=== PATIENT | female | born 2000 | race Two or more races ===

== ENCOUNTER 2018-02-26 02:09 | Observation (INO) | payer SELFPAY ==
[2018-02-26 03:10] LABS: Alcohol, Urine < 3.0 mg/dL (0-5); Amphetamine Screen, Urine NEGATIVE (NEGATIVE); Barbiturate Scree,Urine NEGATIVE (NEGATIVE); Benzodiazephine Screen, Urine NEGATIVE (NEGATIVE); Cannabinoid Screen, Urine NEGATIVE (NEGATIVE); Cocaine Screen, Urine NEGATIVE (NEGATIVE); Opiate Scree,Urine NEGATIVE (NEGATIVE); Phencyclidine Screen, Urine NEGATIVE (NEGATIVE)
[2018-02-26 03:19] LABS: Urine Bacteria FEW /hpf (None Seen); Urine Blood 2+ /uL (Negative); Urine Mucus FEW (None Seen); Urine Specific Gravity 1.029 (1.001-1.035); Urine WBC 25 /hpf (0 - 5)
== END 2018-02-26 03:41 | disposition home or self-care (01) | DRG 781 ==
LOC: LDRP 02:09
PROVIDERS: ADMIT Specialist; ATTEND Specialist
DX: O26.852 Spotting complicating pregnancy, second trimester (principal); O26.892 Other specified pregnancy related conditions, second trimester; R10.9 Unspecified abdominal pain; Z3A.20 20 weeks gestation of pregnancy
CPT/HCPCS: 59025; 76805; 80307; 81001; 81002; 86850; 86900; 86901; G0378

== ENCOUNTER 2018-05-29 08:45 | Emergency (ER) | payer MEDICAID ==
[~2018-05-29] VITALS: Ht 154.9 cm; Wt 61.7 kg
[2018-05-29 08:52] VITALS: BP 105/66
[2018-05-29] MEDS ORDERED: PREN-153 OR (13:11)
[2018-05-29] MEDS ORDERED: FERR27TA2 PO (13:11)
[2018-05-30] MEDS ORDERED: NIF10C GT (19:19)
== END 2018-05-29 08:55 | disposition home or self-care (01) ==
LOC: ER 08:45 → EDBD 08:45 → ER 08:55
DX: O26.893 Other specified pregnancy related conditions, third trimester (principal); R10.9 Unspecified abdominal pain; R07.89 Other chest pain; Z3A.32 32 weeks gestation of pregnancy

== ENCOUNTER 2018-05-29 08:55 | Observation (INO) | payer MEDICAID ==
[2018-05-29] MEDS ORDERED: LACTATED RINGER'S 1,000 ML IV ONE (09:45)
[2018-05-29] MEDS ORDERED: BETAMETHASONE ACET (6MG/ML) 5ML VIAL IM SCH (10:00)
[2018-05-29] MEDS: TERBUTALINE SULFATE 1 MG/ML 1ML VIAL SC SCH ×3 (10:03→10:52)
[2018-05-29 10:52] LABS: Urine Bacteria MOD /hpf (None Seen); Urine Blood Negative /uL (Negative); Urine Specific Gravity 1.004 (1.001-1.035); Urine Sperm PRESENT /hpf (None Seen); Urine WBC 29 /hpf (0 - 5)
[2018-05-29 10:55] LABS: Alcohol, Urine < 3.0 mg/dL (0-5); Amphetamine Screen, Urine NEGATIVE (NEGATIVE); Barbiturate Scree,Urine NEGATIVE (NEGATIVE); Benzodiazephine Screen, Urine NEGATIVE (NEGATIVE); Cannabinoid Screen, Urine NEGATIVE (NEGATIVE); Cocaine Screen, Urine NEGATIVE (NEGATIVE); Opiate Scree,Urine NEGATIVE (NEGATIVE); Phencyclidine Screen, Urine NEGATIVE (NEGATIVE)
[2018-05-29] MEDS ORDERED: FERR27TA2 PO (13:11)
[2018-05-29] MEDS ORDERED: PREN-153 OR (13:11)
[2018-05-30] MEDS ORDERED: NIF10C GT (19:19)
== END 2018-05-29 12:00 | disposition home or self-care (01) | DRG 563 ==
LOC: LDRP 08:55
PROVIDERS: ADMIT Obstetrics & Gynecology; ATTEND Obstetrics & Gynecology
DX: O60.03 Preterm labor without delivery, third trimester (principal); O26.853 Spotting complicating pregnancy, third trimester; Z3A.32 32 weeks gestation of pregnancy
CPT/HCPCS: 59025; 76815; 80307; 81001; 81002; 96360; 96372; G0378; J0702; J3105

== ENCOUNTER 2018-05-30 18:32 | Observation (INO) | payer MEDICAID ==
[~2018-05-30 18:32] MED LIST: BETAMETHASONE ACET (6MG/ML) 5ML VIAL IM ONE; FERR27TA2 PO; PREN-153 OR
[2018-05-30] MEDS ORDERED: NIF10C GT (19:19)
== END 2018-05-30 19:56 | disposition home or self-care (01) | DRG 563 ==
LOC: LDRP 18:32
PROVIDERS: ADMIT Specialist; ATTEND Specialist
DX: O60.03 Preterm labor without delivery, third trimester (principal); O26.893 Other specified pregnancy related conditions, third trimester; F10.21 Alcohol dependence, in remission; O26.853 Spotting complicating pregnancy, third trimester; R51 Headache; R10.9 Unspecified abdominal pain; Z3A.32 32 weeks gestation of pregnancy
CPT/HCPCS: 59025; 81002; 96372; G0378; J0702

== ENCOUNTER 2018-06-04 09:55 | Observation (INO) | payer MEDICAID ==
[~2018-06-04 09:55] MED LIST changes: -BETAMETHASONE ACET (6MG/ML) 5ML VIAL IM ONE; +NIF10C GT
== END 2018-06-04 10:40 | disposition home or self-care (01) | DRG 563 ==
LOC: LDRP 09:55
PROVIDERS: ADMIT Obstetrics & Gynecology; ATTEND Obstetrics & Gynecology
DX: O60.03 Preterm labor without delivery, third trimester (principal); O26.853 Spotting complicating pregnancy, third trimester; Z3A.33 33 weeks gestation of pregnancy
CPT/HCPCS: 59025; 81002; G0378

== ENCOUNTER 2018-06-14 13:45 | Observation (INO) | payer MEDICAID | END 2018-06-14 14:40 | disposition home or self-care (01) | DRG 563 | LOC: LDRP 13:45 | PROVIDERS: ADMIT Obstetrics & Gynecology; ATTEND Obstetrics & Gynecology | DX: O60.03 Preterm labor without delivery, third trimester (principal); O62.9 Abnormality of forces of labor, unspecified; Z3A.34 34 weeks gestation of pregnancy | CPT/HCPCS: 59025; 81002; G0378 ==

== ENCOUNTER 2018-07-03 08:35 | Observation (INO) | payer MEDICAID ==
[~2018-07-03] VITALS: Ht 154.9 cm; Wt 65.8 kg
[2018-07-03] MEDS ORDERED: SODIUM CHLORIDE 0.9% 1,000 ML IV ONE (09:30)
[2018-07-03] MEDS ORDERED: cefTRIAXone 1GM/10ml IVPUSH 10 ML IV ONE (09:30)
[2018-07-03 10:25] LABS: Basophils # (auto) 0 uL; Eosinophils # (auto) 0 uL; Eosinophils % (auto) 0.2 % (0.0-7.0); Hemoglobin 10.8 g/dL (12.2-16.2); Monocytes # (auto) 0.4 uL; Neutrophils # (auto) 5.5 uL
[2018-07-03 10:28] LABS: Basophils % (auto) 0.5 % (0.0-2.0); Hematocrit 33.6 % (36.0-46.0); Lymphocytes # (auto) 1.7 uL; Lymphocytes % (auto) 21.9 % (10.0-50.0); Mean Corpuscular Hemoglobin 26.2 pg (28.0-32.0); Mean Corpuscular Hgb Conc. 32.1 g/dL (32.0-36.0); Mean Corpuscular Volume 81.6 fL (80.0-100.0); Monocytes % (auto) 5.6 % (0.0-12.0); Neutrophils % (auto) 71.8 % (37.0-80.0); Platelet Count (auto) 270 10^3/uL (140-450); Red Blood Cells 4.11 10^6/uL (4.0-5.20); Red Cell Distribution Width 14.8 % (11.8-14.3); White Blood Cell 7.7 10^3/uL (4.4-10.8)
[2018-07-03 10:47] LABS: Urine Bacteria FEW /hpf (None Seen); Urine Blood 2+ /uL (Negative); Urine Mucus FEW (None Seen); Urine Specific Gravity 1.011 (1.001-1.035); Urine WBC 254 /hpf (0 - 5); Urine WBC Clumps PRESENT /hpf (None Seen)
[2018-07-03] MEDS ORDERED: ACETAMINOPHEN 325 MG TAB PO ONE ×2 (11:15→11:17)
== END 2018-07-03 12:10 | disposition home or self-care (01) | DRG 566 ==
LOC: LDRP 08:35
PROVIDERS: ADMIT Specialist; ATTEND Specialist
DX: O62.9 Abnormality of forces of labor, unspecified (principal); O23.43 Unspecified infection of urinary tract in pregnancy, third trimester; O26.853 Spotting complicating pregnancy, third trimester; O99.89 Other specified diseases and conditions complicating pregnancy, childbirth and the puerperium; M54.9 Dorsalgia, unspecified; Z3A.38 38 weeks gestation of pregnancy
CPT/HCPCS: 36415; 59025; 81001; 85025; 87086; 87088; 87186; 96374; G0378; J0696; J7030

== ENCOUNTER 2018-07-10 13:55 | Inpatient (IN) | payer MEDICAID ==
[~2018-07-10] VITALS: Ht 154.9 cm; Wt 65.8 kg
[~2018-07-10 13:55] MED LIST changes: -NIF10C GT
[2018-07-10] MEDS ORDERED: LACT. RINGERS/OXYTOCIN 20UNITS 1,000 ML IV SCH ×2 (14:48→15:38)
[2018-07-10] MEDS ORDERED: LIDOCAINE 2% (LOCAL ANESTH.) PF 5ml SDV ID PRN (15:00)
[2018-07-10] MEDS ORDERED: WITCH HAZEL-GLYCERIN PAD TOP PRN (15:00)
[2018-07-10] MEDS ORDERED: PHISODERM TOP SOLN 240ML BTL TOP PRN (15:00)
[2018-07-10] MEDS ORDERED: NALBUPHINE HCL 10 MG/1ml INJECTION IV PRN (15:00)
[2018-07-10] MEDS ORDERED: DERMOPLAST 60ML BOTTLE TOP PRN (15:45)
[2018-07-10] MEDS ORDERED: TERBUTALINE SULFATE 1 MG/ML 1ML VIAL SC PRN (15:45)
[2018-07-10 15:55] LABS: Basophils # (auto) 0 uL; Basophils % (auto) 0.5 % (0.0-2.0); Eosinophils # (auto) 0 uL; Hemoglobin 10.5 g/dL (12.2-16.2); Monocytes # (auto) 0.3 uL; Monocytes % (auto) 5.4 % (0.0-12.0)
[2018-07-10 15:56] LABS: Albumin 2.4 g/dL (3.4-5.0); BUN/Creatinine Ratio 13.6; Calcium 8.8 mg/dL (8.5-10.1); Potassium 3.8 mmol/L (3.5-5.1)
[2018-07-10 15:57] LABS: Eosinophils % (auto) 0.3 % (0.0-7.0); Hematocrit 32.2 % (36.0-46.0); Lymphocytes # (auto) 1.5 uL; Lymphocytes % (auto) 25.5 % (10.0-50.0); Mean Corpuscular Hemoglobin 26.4 pg (28.0-32.0); Mean Corpuscular Hgb Conc. 32.6 g/dL (32.0-36.0); Mean Corpuscular Volume 81.1 fL (80.0-100.0); Neutrophils # (auto) 3.9 uL; Neutrophils % (auto) 68.3 % (37.0-80.0); Nucleated Red Blood Cells % 0.1 %; Platelet Count (auto) 242 10^3/uL (140-450); Red Blood Cells 3.96 10^6/uL (4.0-5.20); Red Cell Distribution Width 14.9 % (11.8-14.3); White Blood Cell 5.8 10^3/uL (4.4-10.8)
[2018-07-10 15:59] LABS: Bilirubin, Total 0.5 mg/dL (0.2-1.0); Total Protein 7.7 g/dL (6.4-8.2)
[2018-07-10] MEDS: ceFAZolin 1GM/50ML 50 ML IV SCH (16:05)
[2018-07-10] MEDS: LACTATED RINGER'S 1,000 ML IV SCH ×2 (16:06→18:43)
[2018-07-10 16:39] LABS: Urine Bacteria NONE SEEN /hpf (None Seen); Urine Blood Negative /uL (Negative); Urine Specific Gravity 1.014 (1.001-1.035); Urine WBC 5 /hpf (0 - 5)
[2018-07-10] MEDS ORDERED: NALOXONE HCL 0.4 MG/ML VIAL IV ONE (18:00)
[2018-07-10] MEDS ORDERED: ePHEDrine SULFATE 50 MG/ML AMP IV ONE (18:00)
[2018-07-10] MEDS ORDERED: fentaNYL W ROPIVACAINE 150 ML EPI SCH (18:00)
[2018-07-10] MEDS ORDERED: fentaNYL CITRATE 100 MCG/2 ML VL IV ONE (18:00)
[2018-07-10] MEDS ORDERED: LIDOCAINE HCL 2 %PF INJ 10ML AMP IJ PRN (18:00)
[2018-07-10 18:13] LABS: INR 0.91 (0.9-1.15); Partial Thromboplastin Time 27.9 sec (23.78-33.04); Prothrombin Time 9.8 sec (9.27-12.13)
[2018-07-10] MEDS ORDERED: METHYLERGONOVINE MALEATE 0.2 MG/ML AMP IM ONE (23:10)
[2018-07-11] MEDS ORDERED: METHYLERGONOVINE MALEATE 0.2 MG/ML AMP IM ONE
[2018-07-11] MEDS: ceFAZolin 1GM/50ML 50 ML IV SCH ×3 (00:02→16:39)
[2018-07-11] MEDS ORDERED: ONDANSETRON HCL 4 MG/2 ML VIAL IV PRN (00:15)
[2018-07-11] MEDS: IBUPROFEN 600 MG TAB PO PRN ×5 (01:52→22:38)
[2018-07-11 03:00] VITALS: BP 105/60
[2018-07-11 06:06] LABS: RPR Non Reactive (Non Reactive)
[2018-07-11 06:44] VITALS: BP 101/54
[2018-07-11] MEDS: LACTATED RINGER'S 1,000 ML IV SCH ×2 (06:48→14:48)
[2018-07-11] MEDS ORDERED: DOCUSATE CALCIUM 240 MG CAP PO SCH (10:00)
[2018-07-11 11:02] VITALS: BP 101/58
[2018-07-11 15:15] VITALS: BP 125/62
[2018-07-11] MEDS: ACETAMINOPHEN 325 MG TAB PO PRN (17:04)
[2018-07-11 19:00] VITALS: BP 102/65
[2018-07-11 23:00] VITALS: BP 108/60
[2018-07-12] MEDS: ceFAZolin 1GM/50ML 50 ML IV SCH ×2 (00:25→08:05)
[2018-07-12 03:00] VITALS: BP 101/53
[2018-07-12] MEDS: ACETAMINOPHEN 325 MG TAB PO PRN (04:59)
[2018-07-12 06:55] VITALS: BP 106/60
[2018-07-12] MEDS: IBUPROFEN 600 MG TAB PO PRN (08:06)
[2018-07-12 11:00] VITALS: BP 106/66
== END 2018-07-12 12:55 | disposition home or self-care (01) | DRG 560 ==
LOC: OBSVTOIN 13:55 → LDRP 13:55
PROVIDERS: ADMIT Obstetrics & Gynecology; ATTEND Obstetrics & Gynecology
PROC: 10E0XZZ Delivery of Products of Conception, External Approach (ICD-10-PCS; principal; 2018-07-10)
PROC: 0W8NXZZ Division of Female Perineum, External Approach (ICD-10-PCS; 2018-07-10)
PROC: 0KQM0ZZ Repair Perineum Muscle, Open Approach (ICD-10-PCS; 2018-07-10)
PROC: 3E0R3BZ Introduction of Anesthetic Agent into Spinal Canal, Percutaneous Approach (ICD-10-PCS; 2018-07-10)
PROC: 00HU33Z Insertion of Infusion Device into Spinal Canal, Percutaneous Approach (ICD-10-PCS; 2018-07-10)
DX: O99.824 Streptococcus B carrier state complicating childbirth (principal); O42.92 Full-term premature rupture of membranes, unspecified as to length of time between rupture and onset of labor; Z37.0 Single live birth; Z3A.38 38 weeks gestation of pregnancy; O70.1 Second degree perineal laceration during delivery
CPT/HCPCS: 36415; 59025; 59409; 62282; 80053; 81001; 81002; 85025; 85610; 85730; 86592; 86850; 86900; 86901; 94762; 96365; 96366; A6257; G0378; J0690; J2001; J2405; J2590; J3010